=== PATIENT | female | born 1965 | race Caucasian/White ===

== ENCOUNTER 2016-12-12 19:43 | Emergency (ER) | payer MEDICAID, OTHER ==
[~2016-12-12] VITALS: Ht 152.4 cm; Wt 79.5 kg
[~2016-12-12 19:43] MED LIST: TAG300
[2016-12-12 20:07] VITALS: Ht 152.4 cm; Wt 79.5 kg
[2016-12-12] MEDS ORDERED: IBUP-1542 PO (20:37)
[2016-12-12] MEDS ORDERED: ACYC800T57 PO (20:37)
[2016-12-12] MEDS ORDERED: PRED50TA PO (20:37)
[2016-12-12] MEDS ORDERED: HYDR-906 PO (20:37)
--- NOTE | 2016-12-12 20:50 | ERD ---
ER Documentation Chief Complaint Date/Time DATE: 12/12/16 TIME: 20:43 Chief Complaint painful rash on left lower leg; hx of shingles HPI 51-year-old female presents with emergency department for complaints of a rash in the left lower leg notice one week ago, continue to have blisters, started as a small rash, but it was an insect bite, now is more painful and blistery, patient states that she had the same kind of vesicles before, was diagnosed to have shingles. She feels it is the same way. She describes the pain as burning pain, 6/10 scale, says upon touching the area, denies any rash in other parts of the body. Patient denies any numbness or tingling. Patient did not take any medications for pain. Patient denies any fever or chills. ROS All systems reviewed and are negative except as per history of present illness. Medications Home Meds Active Scripts Prednisone* (Prednisone*) 50 Mg Tablet, 50 MG PO DAILY for 5 Days, TAB Prov:MILLER PACHECO NP 12/12/16 Hydrocodone/Acetaminophen ([place] 5-325 Tablet) 1 Each Tablet, 1 TAB PO Q6H Y for SEVERE PAIN LEVEL 7-10, #20 TAB Prov:MILLER PACHECO NP 12/12/16 Ibuprofen* (Motrin*) 600 Mg Tab, 600 MG PO Q6H Y for PAIN AND OR ELEVATED TEMP, #30 TAB Prov:MILLER PACHECO NP 12/12/16 Acyclovir* (Zovirax*) 800 Mg Tablet, 800 MG PO 5 TIMES DAILY for 7 Days, TAB Prov:MILLER PACHECO NP 12/12/16 Reported Medications Cimetidine* (Tagamet*) 300 Mg Tablet 03/05/12 Allergies Allergies: Coded Allergies: No Known Allergy (Unverified , 03/05/12) PMhx/Soc Medical and Surgical Hx: pt denies Surgical Hx History of Surgery: No Anesthesia Reaction: No Hx Neurological Disorder: No Hx Respiratory Disorders: No Hx Cardiac Disorders: No Hx Psychiatric Problems: No Hx Miscellaneous Medical Probl: Yes (shingles) Hx Alcohol Use: No Hx Substance Use: No Hx Tobacco Use: No Smoking Status: Never smoker FmHx Family History: No coronary disease, No diabetes, No other Physical Exam Vitals Vital Signs Date Time Temp Pulse Resp B/P Pulse Ox O2 Delivery O2 Flow Rate FiO2 12/12/16 20:07 98.4 66 20 148/84 99 Physical Exam GENERAL: The patient is well developed and appropriate for usual state of health, in no apparent distress. CHEST: Clear to auscultation bilaterally. There are no rales, wheezes or rhonchi. HEART: Regular rate and rhythm. No murmurs, clicks, rubs or gallops. No S3 or S4. ABDOMEN: Soft, nontender and nondistended. Good bowel sounds. No rebound or guarding. No gross peritonitis. No gross organomegaly or masses. No Simon sign or McBurney point tenderness. BACK: No midline or flank tenderness. EXTREMITIES: Equal pulses bilaterally. There is no peripheral clubbing, cyanosis or edema. No focal swelling or erythema. Full range of motion. Grossly neurovascularly intact. NEURO: Alert and oriented. Cranial nerves 2-12 intact. Motor strength in all 4 extremities with 5/5 strength. Sensation grossly intact. Normal speech and gait. SKIN: No tenderness either rash on the left posterior aspect of the leg, noted on the posterior crease of the knee, level of the S1 dermatome. There is no apparent ecchymosis or petechia. The skin is warm and dry. HEMATOLOGIC AND LYMPHATIC: There is no evidence of excessive bruising or lymphedema. No gross cervical, axillary, or inguinal lymphadenopathy. Procedures/MDM Medical decision making: Patient symptoms is likely is consistent with herpes zoster, shingles. No symptoms of any chickenpox, and symptoms of any other contagious rash. No symptoms of any coagulopathies. No symptoms of any MRSA infection. Prescription was given for acyclovir, ibuprofen [place] prednisone, is advised to follow-up with primary doctor in 2-3 days for reevaluation symptoms. Patient is advised to return to emergency department for any worsening symptoms. Disposition: Home. Stable. Departure Diagnosis: Primary Impression: Shingles Herpes zoster complications: without complications Qualified Code: B02.9 - Herpes zoster without complication Condition: Stable Patient Instructions: Shingles (Herpes Zoster) MILLER PACHECO NP Dec 12, 2016 20:50
== END 2016-12-12 20:52 | disposition home or self-care (01) ==
LOC: FTE 19:43
DX: B02.9 Zoster without complications (principal)
CPT/HCPCS: 99284